=== PATIENT | female | born 1965 | race Caucasian/White ===

== ENCOUNTER → 2025-01-26 15:59 | Outpatient (CLI) | payer OTHER, SELFPAY | PROVIDERS: Visit Provider Nurse Practitioner Family | DX: R30.0 Dysuria (principal) | CPT/HCPCS: 87086 ==

== ENCOUNTER → 2025-03-17 08:54 | Outpatient (CLI) | payer OTHER, SELFPAY ==
--- NOTE | 2025-03-17 08:56 | DI.CT.S_ITS ---
PROCEDURE: CT LUNG LOW DOSE SCREENING INDICATIONS: tobacco use TECHNIQUE: Noncontrast 2.0-2.5 mm thick sections acquired from the pulmonary apices to the posterior costophrenic angles. 7 mm thick axial MIP, and 5 mm coronal and sagittal reformats were then acquired. For radiation dose reduction, the following was used: automated exposure control, adjustment of mA and/or kV according to patient size. COMPARISON: [facility], CT, CT ABDOMEN PELVIS W CON, 03/17/2025, 10:31. FINDINGS: Image quality: Diagnostic. Lower Neck: No enlarged lymph nodes. Thyroid: No thyroid nodules which require sonographic follow up, per consensus guidelines. Axillae: No enlarged lymph nodes. Chest Wall: Unremarkable. Bones: Unremarkable. Lungs and Pleura: No pneumothorax or pleural effusions. No consolidation but there are 2 peripheral left posterolateral pulmonary suspicious nodules. These are both seen on series 3, image 185, and they measure 3-4 mm in maximal dimension. Heart: Heart size is normal. No pericardial effusion. Thoracic Vessels: The aorta and pulmonary arteries demonstrate normal size. Mediastinum and Jenn: No enlarged lymph nodes. Esophagus: No wall thickening. No hiatal hernia. Upper Abdomen: Visualized upper abdomen solid organs and bowel loops appear normal. IMPRESSION: Two separate adjacent left lower lobe 3-4 mm pulmonary nodules are seen. LUNG-RADS 3; recommend 6 month noncontrast low-dose CT follow-up. Clinically Significant Non-pulmonary Findings: None. Dictated by: Denny Madrid M.D. on 03/17/2025 at 11:26 Approved by: Denny Madrid M.D. on 03/17/2025 at 11:34
--- NOTE | 2025-03-17 08:56 | DI.CT.S_ITS ---
PROCEDURE: CT ABDOMEN PELVIS W CON INDICATIONS: abdominal pain TECHNIQUE: After the administration of intravenous contrast, axial sections acquired from the lung bases to the pubic symphysis. Coronal and sagittal reformats were performed. For radiation dose reduction, the following was used: automated exposure control, adjustment of mA and/or kV according to patient size. COMPARISON: None. FINDINGS: Image quality: Diagnostic. Lower Chest: See CT chest low-dose screening examination same day. ABDOMEN: Liver: No solid mass. There is a slight degree of focal fatty infiltration within the anterior tip of the left medial hepatic segment abutting the fissure for the falciform ligament anteriorly, a common site focal fatty infiltration. Gallbladder: No radiopaque gallstones or wall thickening. Biliary ducts: No biliary dilation. Pancreas: No ductal dilation. Spleen: Size is within normal limits. Adrenal Glands: No adrenal nodules. Kidneys and Ureters: No hydronephrosis. No solid mass. No complex renal cystic lesion which requires follow up. Stomach and Bowel: Normal colonic caliber, without significant wall thickening. Peritoneum: No abnormal intraperitoneal fluid. No free air. Ventral Wall: No significant ventral hernia. Abdominal Nodes: No retroperitoneal or mesenteric adenopathy by size criteria. Vessels: Aorta and inferior vena cava are normal in size. PELVIS: Pelvic Organs: Unremarkable. Bladder: No bladder wall thickening, accounting for underdistention. Pelvic Nodes: No enlarged lymph nodes. Miscellaneous: No inguinal hernias are seen. Normal appendix found right lower quadrant. Bones: No aggressive osseous abnormality. IMPRESSION: Source of clinically reported right upper quadrant palpable mass is not seen. Minimal focal fatty infiltration is seen at the anterior tip of the left medial hepatic segment, a common site for this finding. No follow-up recommended. No acute disease found. Dictated by: Denny Madrid M.D. on 03/17/2025 at 12:17 Approved by: Denny Madrid M.D. on 03/17/2025 at 12:22
== END ==
PROVIDERS: PCP Registered Nurse; Referring Provider Registered Nurse; Visit Provider Registered Nurse
DX: Z12.2 Encounter for screening for malignant neoplasm of respiratory organs (principal); F17.210 Nicotine dependence, cigarettes, uncomplicated; R91.8 Other nonspecific abnormal finding of lung field; R10.30 Lower abdominal pain, unspecified; R19.01 Right upper quadrant abdominal swelling, mass and lump
CPT/HCPCS: 71271; 74177; Q9967

== ENCOUNTER → 2025-03-30 16:44 | Outpatient (CLI) | payer OTHER, SELFPAY ==
--- NOTE | 2025-03-30 16:46 | DI.MG.S_ITS ---
MM screening mammo BI: 03/30/2025. BI-RADS: 1 CLINICAL: 59-year old female for bilateral screening mammogram. Tyrer-Cuzick lifetime risk of 5.8%. No personal or first-degree family history of breast cancer. PRIOR EXAMS: 04/22/2019, 03/20/2018, 10/15/2016. MAMMOGRAPHY TECHNIQUE: 2D and 3D (tomosynthesis) digital mammographic views obtained, with additional images as needed for full coverage. Current study was also evaluated with a Computer Aided Detection (CAD) system. DENSITY B. There are scattered areas of fibroglandular density. MAMMOGRAPHY FINDINGS Bilateral: No suspicious mass, asymmetry, microcalcification, or other abnormality seen. IMPRESSION: * No evidence of malignancy. RECOMMENDATIONS Bilateral * Annual screening mammography. OVERALL ASSESSMENT CATEGORY BI-RADS-1: Negative. The [employer] recommends annual screening mammography beginning at age 40 for women with average risk of breast cancer. ELECTRONICALLY SIGNED: Chrissy Alvarenga M.D. on 04/04/2025 at 01:59:54 AM PT Interpreting Station ID: [id number]
== END ==
LOC: MAMMO 16:44
PROVIDERS: Referring Provider Registered Nurse; Visit Provider Registered Nurse
DX: Z12.31 Encounter for screening mammogram for malignant neoplasm of breast (principal)
CPT/HCPCS: 77063; 77067